=== PATIENT | female | born 1985 | race Hispanic/Latino ===

== ENCOUNTER 2020-12-01 23:52 | Emergency (ER) | payer SELFPAY ==
--- NOTE | ~2020-12-01 | CT_ITS ---
EXAMINATION: CT abdomen pelvis w con DATE: 12/02/2020 01:15 INDICATION: Right upper quadrant pain for one day. History of gallbladder abnormality. TECHNIQUE: Computed tomography (CT) of the abdomen and pelvis was performed with 100 cc Omnipaque 350 intravenous contrast. The dose-length product was 387.37 mGy-cm. Automated exposure control and iter ative reconstruction technique were employed. COMPARISON: 01/17/2017 FINDINGS: There is bibasilar dependent atelectasis. Heart size is normal. No significant pleural or p ericardial effusion. Fatty infiltration of the liver. There is mildly dilated small bowel in the cent ral aspect of the abdomen with possible transition in the right mid abdomen. The proximal small bowel is also relatively decompressed. The colon is relatively decompressed. No free air. No evidence for pneumatosis. No fluid in the mesentery. Gallbladder is present. No lymphadenopathy. No acute osseous abnormality. IMPRESSION: 1. Dilated small bowel centrally with decompressed more proximal and distal small bowel. Findings francisca picious for small bowel obstruction, possibly closed loop. 2: Hepatic steatosis. Reviewed, dictated and finalized at location A. IMPRESSION: 1. Dilated small bowel centrally with decompressed more proximal and distal sma ll bowel. Findings suspicious for small bowel obstruction, possibly closed loop . 2: Hepatic steatosis.
[2020-12-02 00:01] VITALS: BP 140/93; PULSE 61; RESP 16; O2SAT 100
--- NOTE | 2020-12-02 00:37 | ED.ABDPAIN ---
HPI - Abdominal Pain General Chief Complaint: Abdominal Pain Stated Complaint: abd pain Time Seen by Provider: 12/02/20 00:28 Source: patient Mode of arrival: ambulatory Limitations: language barrier ( is interpreting, patient is Greek-speaking) History of Present Illness HPI narrative: This is a 35 year old female that presents to the emergency department for right upper quadrant abdominal pain present since this afternoon. Reports history of gallbladder issues. The pain is constant and sharp. Associated with nausea. Denies fever, chest pain, shortness of breath, vomiting, dysuria, or hematuria. Related Data Allergies Allergy/AdvReac Type Severity Reaction Status Date / Time No Known Allergies Allergy Verified 12/02/20 00:23 Review of Systems Review of Systems: Narrative: CONSTITUTIONAL: Denies fever CARDIOVASCULAR: Denies chest pain RESPIRATORY: Denies dyspnea. GASTROINTESTINAL: Reports abdominal pain, nausea. Denies vomiting GENITOURINARY: Denies dysuria or hematuria. All systems reviewed & are unremarkable except as noted in HPI and below PMFSH Past Medical History Medical History (Updated 12/02/20 @ 02:48 by Roya Brandt PA-C) No active medical problems Social History Social History (Updated 12/02/20 @ 00:38 by Roya Brandt PA-C) Smoking status: Never smoker Gender identity (if verbalized by the patient): Female Exam Narrative: Exam Narrative: GENERAL: Well-appearing, well-nourished, and in no acute distress. HEAD: Normocephalic, atraumatic. EYES: EOMI. CHEST: Clear to auscultation. No respiratory distress. No wheezes rales or rhonchi HEART: Regular rate and rhythm. No murmur heard. Normal peripheral pulses. ABDOMEN: Soft, nondistended, normal active bowel sounds. Tender to palpation in the right upper quadrant, without guarding. No CVA tenderness EXTREMITIES: Normal range of motion. No edema. SKIN: Warm, dry, no rash. NEURO: No focal deficits. Alert and oriented x3. PSYCH: Normal mood and affect Course Consultations Consultation #1: Spoke with Dr. Cowan about patient and workup who reports if patient is having bowel movements she is able to be discharged home with outpatient follow up Date: 12/02/20 Time: 02:03 Vital Signs Vital signs: Vital Signs Pulse Rate 61 12/02/20 00:01 Respiratory Rate 16 12/02/20 00:01 Blood Pressure 140/93 H 12/02/20 00:01 Pulse Oximetry 100 12/02/20 00:01 Temperature 98.9 F 12/02/20 02:08 Pulse Rate 56 L 12/02/20 02:24 Respiratory Rate 20 12/02/20 02:24 Blood Pressure 138/88 12/02/20 02:24 Pulse Oximetry 100 12/02/20 02:24 MDM - Abdominal Pain MDM Narrative Medical decision making narrative: Patient presents to the emergency department for right upper quadrant abdominal pain since this afternoon. She is afebrile and nontoxic-appearing. CBC is without leukocytosis. Metabolic panel with mild transaminitis. UA without evidence of infection. Bedside test is negative. CT scan of the abdomen and pelvis shows findings suspicious for a possible small bowel obstruction. Shows hepatic steatosis. Spoke with Dr. Cowan about patient and work-up who reports if patient is having bowel movements she is able to be discharged and follow-up outpatient. Patient was updated on case findings. She does report she had a normal bowel movement tonight. Patient's pain is improved. Feels ready for discharge home. She was given strict warnings to return for any worsening symptoms or concerns. Instructed on clear liquid diet until her pain improves. Is to call to make an appointment to follow up with general surgery Lab Data Attestation: I reviewed the patient's lab results. Result diagrams: 12/02/20 00:35 12/02/20 00:35 Labs: Lab Results 12/02/20 12/02/20 12/02/20 Range/Units 00:35 00:35 00:35 WBC 9.3 (4.5-10.0) K/mm3 RBC 3.87 L (4.2-5.4) M/mm3 Hgb 12.4 (12.0-15.0) g/dL Hct 37.2 (
[2020-12-02 00:41] LABS: Basophils Percent Auto 0.4 % (0.2-1.2); Eosinophils Absolute Auto 0.2 K/mm3 (0-0.3); Eosinophils Percent Auto 2.2 % (0-4.4); Hematocrit 37.2 % (37.0-47.0); Hemoglobin 12.4 g/dL (12.0-15.0); Immature Granulocyte Absolute 0.07 K/mm3 (0.00-0.031); Immature Granulocyte Percent A 0.8 % (0-0.5); Lymphocytes Absolute Auto 3.77 K/mm3 (0.9-3.2); Lymphocytes Percent Auto 40.6 % (18.3-44.2); Mean Corpuscular HGB Conc 33.3 g/dl (32-36); Mean Corpuscular Volume 96.1 fl (80-100); Mean Platelet Volume 11.1 fl (7.4-10.4); Monocytes Absolute Auto 0.7 K/mm3 (0.1-0.6); Neutrophils Absolute Auto 4.5 K/mm3 (1.3-6.7); Platelet Count Result 226 k/mm3 (150-375); Red Blood Count 3.87 M/mm3 (4.2-5.4); Red Cell Distribution Width 12.3 % (11.5-14.5); White Blood Count 9.3 K/mm3 (4.5-10.0)
[2020-12-02 00:51] LABS: Add Urine Microscopic? YES; Appearance Urine Clear (Clear); Bacteria Urine Trace /hpf; Bilirubin Urine Negative (Negative); Blood Urine 2+ (Negative); Color Urine Yellow (Yellow); Glucose Urine UA Negative (Negative); Ketones Urine Negative (Negative); Leukocyte Esterase Ur Negative LEU/UL (Negative); Mucus Urine Rare /lpf; Nitrate Urine Negative (Negative); Protein Urine 1+ mg/dL (Negative); Specific Grav Ur 1.018 (1.001-1.035); Squamous Epithelial Cell Urine Few /hpf (Few); Urobilinogen Urine Negative mg/dL (<2.0)
[2020-12-02 00:54] LABS: Alanine Aminotransferase 71 U/L (4-35); Albumin Level 4.6 g/dL (3.5-5.1); Alkaline Phosphatase 64 U/L (38-126); Anion Gap 11 mmol/L (8-16); Aspartate Amino Transferase 60 U/L (14-36); Bilirubin,Total 0.6 mg/dL (0.2-1.3); Blood Urea Nitrogen 15 mg/dL (7-17); Calcium 8.9 mg/dL (8.4-10.2); Carbon Dioxide 21 mmol/L (22-30); Chloride 108 mmol/L (98-107); Estimated CRCL calculation 121 ml/min; Estimated Glomerular Filt Rate > 60; Glucose 94 mg/dL (65-105); Lipase 83 U/L (23-300); Sodium 140 mmol/L (137-145)
[2020-12-02] MEDS: MORPHINE SULFATE (*CRX) 4 MG/ML INJ IV PUSH (01:04)
[2020-12-02] MEDS: ONDANSETRON INJ 4 MG/2 ML VIAL IV PUSH (01:04)
[2020-12-02 02:08] VITALS: TEMP 37.2
[2020-12-02 02:24] VITALS: BP 138/88; PULSE 56; RESP 20; O2SAT 100
[2020-12-02 02:51] LABS: Lactic Acid Reflex 1.3 mmol/L (0.7-2.1)
[2020-12-02 03:03] VITALS: BP 133/89; PULSE 55; RESP 16; O2SAT 100
== END 2020-12-02 03:08 | disposition home or self-care (01) ==
PROVIDERS: Physician Assistant; Emergency Provider Emergency Medicine
DX: K80.20 Calculus of gallbladder without cholecystitis without obstruction (principal); R74.01 Elevation of levels of liver transaminase levels
CPT/HCPCS: 36415; 74177; 80053; 81001; 81025; 83605; 83690; 85025; 96374; 96375; 99284; J0131; J2270; J2405; Q9967